=== PATIENT | female | born 1935 | race Caucasian/White ===

== ENCOUNTER 2022-05-06 20:17 | Emergency (ER) | payer OTHER ==
[~2022-05-06] VITALS: Ht 162.6 cm; Wt 63.5 kg
[2022-05-06] MEDS ORDERED: SODIUM CHLORIDE 0.9% 1,000 ML IV ONE (20:45)
[2022-05-06] MEDS ORDERED: levoFLOXacin 500MG 100 ML IV ONE (22:00)
[2022-05-06 22:28] LABS: Eosinophils # (auto) 0.2 10 ^3/uL (0-0.8); Hemoglobin 12.8 g/dL (12.2-16.2); Lymphocytes # (auto) 1.1 10 ^3/uL (0.4-5.4); Neutrophils # (auto) 4.3 10 ^3/uL (1.6-8.6); White Blood Cell 6.7 10^3/uL (4.4-10.8)
[2022-05-06 22:30] LABS: Basophils # (auto) 0 10 ^3/uL (0-0.2); Basophils % (auto) 0.6 % (0.0-2.0); Eosinophils % (auto) 3.7 % (0.0-7.0); Hematocrit 38.9 % (36.0-46.0); Mean Corpuscular Hemoglobin 35.9 pg (28.0-32.0); Mean Corpuscular Volume 108.8 fL (80.0-100.0); Monocytes % (auto) 14.9 % (0.0-12.0); Neutrophils % (auto) 64.8 % (37.0-80.0); Nucleated Red Blood Cells % 0.1 %; Red Blood Cells 3.58 10^6/uL (4.0-5.20); Red Cell Distribution Width 14.7 % (11.8-14.3)
[2022-05-06 22:41] LABS: INR 0.98 (0.9-1.15); Partial Thromboplastin Time 29.6 sec (23.6-33.0)
[2022-05-06 22:44] LABS: Albumin 3.4 g/dL (3.4-5.0); BUN/Creatinine Ratio 6.5; Calcium 8.7 mg/dL (8.5-10.1); Potassium 3.5 mmol/L (3.5-5.1)
[2022-05-06 22:46] LABS: Bilirubin, Total 0.6 mg/dL (0.2-1.0); Total Protein 6.3 g/dL (6.4-8.2)
[2022-05-07] MEDS ORDERED: HYDROcodone-ACET 5/325MG TAB PO ONE (02:00)
[2022-05-07 02:23] VITALS: BP 146/89
== END 2022-05-07 03:17 | disposition short-term general hospital (02) ==
LOC: EDBD 20:17 → ER 20:17
DX: S81.801A Unspecified open wound, right lower leg, initial encounter (principal); R55 Syncope and collapse; J18.9 Pneumonia, unspecified organism; I48.91 Unspecified atrial fibrillation; I10 Essential (primary) hypertension; E11.9 Type 2 diabetes mellitus without complications; E78.5 Hyperlipidemia, unspecified; Z90.710 Acquired absence of both cervix and uterus; Z90.89 Acquired absence of other organs; Z20.822 Contact with and (suspected) exposure to COVID-19; V49.9XXA Car occupant (driver) (passenger) injured in unspecified traffic accident, initial encounter; Y93.89 Activity, other specified; Y92.410 Unspecified street and highway as the place of occurrence of the external cause; Y99.8 Other external cause status
CPT/HCPCS: 36415; 70450; 71045; 72125; 80053; 83880; 84484; 85025; 85379; 85610; 85730; 87205; 87426; 93005; 96361; 96365; 99291; J1956; J7030

== ENCOUNTER 2022-06-22 20:33 | Emergency (ER) | payer OTHER ==
[~2022-06-22] VITALS: Ht 165.1 cm; Wt 100.0 kg
== END 2022-06-22 20:45 ==
LOC: EDBD 20:33 → ER 20:33 → EDUNIT# 20:33 → ER 20:45
DX: I46.9 Cardiac arrest, cause unspecified (principal); I10 Essential (primary) hypertension; E11.9 Type 2 diabetes mellitus without complications
CPT/HCPCS: 92950